=== PATIENT | male | born 1995 | race Caucasian/White ===

== ENCOUNTER 2017-03-29 15:22 | Emergency (ER) | payer OTHER ==
[2017-03-29 15:47] VITALS: BP 138/70
--- NOTE | 2017-03-29 22:12 | UC ---
Jesika Gaxiola Rebecca, scribed for Giovanny Fields MD on 03/29/17 at 1556 . Skin Complaint HPI - HPI Summary HPI Summary: Pt is a 21 y/o M who presents to [facility] c/o rash s/p encounter with posion lin or sumac. Erythematous rash began 1 week ago and has been constant since onset. Rash is predominantly bilaterally on the forearms with a few small spots on the abdomen. Denies any pain or pruritis or difficulty breathing. Sx aggravated and alleviated by nothing, unchanged by Benadryl. Confirms he has not been scratching the rashes. Previous similar instances of symptoms, typically getting treated for poison lin 1x per year with Prednisone. - History of Current Complaint Chief Complaint: UCSkin Time Seen by Provider: 03/29/17 15:45 Stated Complaint: SKIN COMPLAINT Hx Obtained From: Patient Onset/Duration: Lasting Weeks - 1 week, Still Present Timing: Constant Current Severity: None Pain Intensity: 0 Pain Scale Used: 0-10 Numeric Location: Other - Bilateral forearm, abdomen Character: Redness Aggravating: Nothing Alleviating: Nothing Associated Signs & Symptoms: Positive: Negative. Negative: Throat Tightening - Allergy/Home Medications Allergies/Adverse Reactions: Allergies Allergy/AdvReac Type Severity Reaction Status Date / Time No Known Allergies Allergy Verified 03/29/17 15:47 Home Medications: Home Medications Calamine/Pramoxine LOTION* [Caladryl LOTION*] 1 lot EX SEE INSTRUCTIONS PRN [History Confirmed 03/29/17] Diphenhydramine HCl [Benadryl Allergy 25 MG CAP] 50 mg PO Q6H PRN 03/29/17 [ History Confirmed 03/29/17] Review of Systems Constitutional: Negative Skin: Rash - See comments Eyes: Negative ENT: Negative Respiratory: Negative Cardiovascular: Negative Gastrointestinal: Negative Genitourinary: Negative Motor: Negative Neurovascular: Negative Musculoskeletal: Negative Neurological: Negative Psychological: Negative All Other Systems Reviewed And Are Negative: Yes - Comments Additional Review of Systems Comments: POSITIVE: Erythematous rash predominantly bilaterally on the forearms with a few small spots on the abdomen. NEGATIVE: Any pain, pruririts or difficulty breathing. PMH/Surg Hx/FS Hx/Imm Hx Previously Healthy: Yes Endocrine History: Other Other Endocrine History: Negatvie DM Cardiovascular History: Other Other Cardiovascular History: Negative CAD - Surgical History Surgical History: None - Family History Known Family History: Positive: Hypertension - Social History Alcohol Use: Occasionally Substance Use Type: None Smoking Status (MU): Never Smoked Tobacco Physical Exam Triage Information Reviewed: Yes Vital Signs: Initial Vital Signs Temp 97.8 F 03/29/17 15:41 Pulse 87 03/29/17 15:41 Resp 16 03/29/17 15:41 BP 138/70 03/29/17 15:41 Pulse Ox 99 03/29/17 15:41 Vital Signs Reviewed: Yes - Additional Comments The patient is well-nourished in no acute distress and in no acute pain. The skin is warm and dry. Macular vesicular rash noted on the R forearm that is fairly extensive, scoriated on one spot. Smaller, erythematous vesicular lesions on the L forearm and a similar rash noted on the stomach. Neurovascular intact. Respiratory: Chest is non-tender. Lungs are clear to auscultation and breath sounds are symmetrical and equal. Cardiovascular: Hear is regular rate and rhythm. There is no murmur or rub auscultated. There is no peripheral edema and pulses are symmetrical and equal. Musculoskeletal: There is no back pain noted. Extremities are non-tender with full range of motion. There is good capillary refill. There is no peripheral edema or calf tenderness elicited. Neurological: Patient is alert and oriented to person, place and time. The patient has symmetrical motor strength in all four extremities. Cranial nerves are grossly intact. Deep tendon reflexes are symmetrical and equal in all four extremities. Psychiatric: The patient has an appropriate affect and does not exhibit any anxiety or depression. Course/Dx - Course Course Of Treatment: Pt is a 21 y/o M who presents to [facility] c/o erythematous rash for 1 week s/p encounter with posion lin or sumac. Rash is predominantly bilaterally on the forearms with a few small spots on the abdomen. Denies any pain or pruritis or difficulty breathing. Sx unchanged by Benadryl. Confirms he has not been scratching the rashes. Previous similar instances of symptoms, typically getting treated for poison lin 1x per year with Prednisone. He will be D/C to home with Dx of poison lin and an Rx for Prednisone. He understands and agrees. - Differential Diagnoses - Skin Complaint Differential Diagnoses: Poison [place], Other - poison lin, rhus dermatitis - Diagnoses Provider Diagnoses: Poison Lin Discharge - Discharge Plan Condition: Stable Disposition: HOME Prescriptions: predniSONE TAB* [Deltasone TAB*] 20 mg PO DAILY #30 tab Patient Education Materials: Poison Lin (ED) Referrals: Nicholas Crump MD [Primary Care Provider] - 3 Days Additional Instructions: Return to Urgent Care or an Emergency Department for any returning or worsening symptoms. The documentation as recorded by the Jesika olivo Rebecca accurately reflects the service I personally performed and the decisions made by Diamond wong Drew, MD.
== END 2017-03-29 16:04 | disposition home or self-care (01) ==
LOC: UCCORT 15:22
DX: L23.7 Allergic contact dermatitis due to plants, except food (principal)
CPT/HCPCS: 99212; G0463

== ENCOUNTER 2019-06-13 07:32 | Emergency (ER) | payer OTHER ==
[2019-06-13 08:02] VITALS: BP 138/65
--- NOTE | 2019-06-13 08:26 | UC ---
Lower Extremity/Ankle HPI - HPI Summary HPI Summary: right foot pain x 7 days , pain is at the ball of his right foot, pain is 2 out of 10 , worse with weight bearing , better with rest and elevation no known injury , + swelling, no redness, no fever, no chills - History of Current Complaint Chief Complaint: UCLowerExtremity Stated Complaint: RT FOOT COMPLAINT Time Seen by Provider: 06/13/19 07:59 Hx Obtained From: Patient Onset/Duration: Gradual Onset, Lasting Days - 7, Still Present Severity Initially: Moderate Severity Currently: Moderate Pain Intensity: 2 Aggravating Factor(s): Standing, Ambulation Alleviating Factor(s): Rest, Elevation, Ice Able to Bear Weight: Yes - Allergies/Home Medications Allergies/Adverse Reactions: Allergies Allergy/AdvReac Type Severity Reaction Status Date / Time No Known Allergies Allergy Verified 06/13/19 07:56 Home Medications: Home Medications Naproxen Sodium [Aleve] 440 mg PO BID PRN 06/13/19 [History Confirmed 06/13/19] PMH/Surg Hx/FS Hx/Imm Hx Previously Healthy: Yes - Surgical History Surgical History: None - Family History Known Family History: Positive: Hypertension - Social History Alcohol Use: Occasionally Substance Use Type: None Smoking Status (MU): Never Smoked Tobacco Review of Systems All Other Systems Reviewed And Are Negative: Yes Constitutional: Positive: Negative Skin: Positive: Negative Eyes: Positive: Negative ENT: Positive: Negative Respiratory: Positive: Negative Is Patient Immunocompromised?: No Physical Exam Triage Information Reviewed: Yes Appearance: Well-Appearing, No Pain Distress, Well-Nourished Vital Signs: Initial Vital Signs Temp 98.1 F 06/13/19 07:57 Pulse 72 06/13/19 07:57 Resp 16 06/13/19 07:57 BP 138/65 06/13/19 07:57 Pulse Ox 100 06/13/19 07:57 Vital Signs Reviewed: Yes Eye Exam: Normal Eyes: Positive: Conjunctiva Clear ENT: Positive: Normal ENT inspection, Hearing grossly normal, Pharynx normal Neck: Positive: Supple, Nontender, No Lymphadenopathy Respiratory: Positive: Chest non-tender, Lungs clear, Normal breath sounds Cardiovascular: Positive: RRR, No Murmur, Pulses Normal Musculoskeletal: Positive: Other: - right foot: swelling 1st MTP , no erythema, + tenderness 1st MTP, Diagnostics - Radiology No standard instances Radiology Interpretation Completed By: Radiologist Summary of Radiographic Findings: xray report right foot : IMPRESSION: NO ACUTE OSSEOUS INJURY. IF SYMPTOMS PERSIST, RECOMMEND REPEAT IMAGING. Lower Extremity Course/Dx - Differential Dx/Diagnosis Provider Diagnosis: Right foot pain Discharge ED - Sign-Out/Discharge Documenting (check all that apply): Patient Departure All imaging exams completed and their final reports reviewed: Yes - Discharge Plan Condition: Stable Disposition: HOME Prescriptions: Naproxen [Naproxen 500 mg tab] 500 mg PO BID #20 tablet. Patient Education Materials: Metatarsalgia (DC) Referrals: No Primary Care Phys,NOPCP [Primary Care Provider] - 7 Days - Billing Disposition and Condition Condition: STABLE Disposition: Home
== END 2019-06-13 08:38 | disposition home or self-care (01) ==
LOC: UCCORT 07:32
DX: M79.671 Pain in right foot (principal)
CPT/HCPCS: 99212; G0463